=== PATIENT | male | born 1965 | race Caucasian/White ===

== ENCOUNTER 2018-02-21 15:02 | Emergency (ER) | payer MEDICARE, MEDICAID ==
[~2018-02-21] VITALS: Ht 175.3 cm; Wt 84.5 kg
[~2018-02-21 15:02] MED LIST: NO HOME MEDS
[2018-02-21 15:49] VITALS: BP 146/70
[2018-02-21] MEDS ORDERED: NICO-687 TOP (17:38)
[2018-02-21] MEDS ORDERED: LORA-269 PO (17:38)
[2018-02-21] MEDS ORDERED: FOLI0.4T2 PO (17:38)
[2018-02-21] MEDS ORDERED: THI100T PO (17:38)
== END 2018-02-21 18:03 | disposition home or self-care (01) ==
LOC: ER 15:03
DX: Z02.89 Encounter for other administrative examinations (principal); F10.129 Alcohol abuse with intoxication, unspecified; F41.9 Anxiety disorder, unspecified; Z88.1 Allergy status to other antibiotic agents; Z79.899 Other long term (current) drug therapy; Y90.9 Presence of alcohol in blood, level not specified
CPT/HCPCS: 99284

== ENCOUNTER 2021-04-09 18:01 | Emergency (ER) | payer MEDICAID, MEDICARE ==
[~2021-04-09] VITALS: Ht 175.3 cm; Wt 86.4 kg
[~2021-04-09 18:01] MED LIST changes: +LORA-269 PO
[2021-04-09 18:11] VITALS: BP 137/81
== END 2021-04-09 22:22 | disposition left against medical advice (07) ==
LOC: ER 18:02
DX: M54.89 Other dorsalgia (principal); Z53.21 Procedure and treatment not carried out due to patient leaving prior to being seen by health care provider
CPT/HCPCS: 73030

== ENCOUNTER 2025-04-24 15:06 | Emergency (ER) | payer MEDICARE ==
[~2025-04-24] VITALS: Ht 175.3 cm; Wt 72.7 kg
[2025-04-24 15:34] VITALS: BP 136/95; PULSE 85; RESP 15; TEMP 96.3; O2SAT 98
--- NOTE | 2025-04-24 15:42 | Physician Documentation ---
History of Present Illness ~ Chief Complaint: Elbow pain Stated Complaint: LEFT ELBOW PAIN HPI 59-year-old male who presents to the emergency department today with two concerns. One concern surround chest tightness, the other is swelling to left elbow. The patient reports that he was hospitalized in [place] for an extended period of time due to critical illness requiring respiratory support and chest tube in February. [place] well after that hospitalization. This chest tightness is new, is not accompanied by a fever or shortness of breath. He does admit that he is a smoker. Tetanus within 5 years: Yes Medication Reconciliation Allergies: Coded Allergies: erythromycin base (Verified Allergy, Intermediate, HIVES, 04/09/21) Scheduled Lorazepam (Ativan), 1 TAB PO Q8H Miscellaneous Medications Home Med List (No Home Medications), (Reported) Review of Systems ROS As stated above in the HPI, otherwise all systems are reviewed and negative. Physical Exam Vital Signs: Temperature: 96.3, Source: Temporal, Heart Rate: 85, Respiratory Rate: 15, BP: 136/95, Pulse Oximetry: 98, Weight: 72.700 Physical Exam General: Alert, no apparent distress. HEENT: PERRL, EOMI, no injection, moist mucous membranes. Neck: Full range of motion. Respiratory: Lungs clear, no respiratory distress. Dim throughout. No distress. Chest: No accessory muscle use. Cardiovascular: Regular rate and rhythm, no murmurs. Gastrointestinal: Soft, nontender, nondistended. Bowels sounds present. Extremities: Normal range of motion, no deformity. Bursitis without cellulit is/erythema left elbow. Neurologic: Oriented x4. Psychiatric: Normal mood and affect. Skin: Normal color, warm and dry. Trace edema BLE. Progress Results/Orders Results/Orders Vital Signs 04/24/25 15:34 Temp 96.3 Pulse 85 Resp 15 B/P (MAP) 136/95 Pulse Ox 98 Medical Decision Making Additional information obtaine: old records Findings Last seen in this ER 2020 for back pain. General Diff Dx:Considerations: Include: Other Shoulder Diff Dx:Consideration: Include: Other Elbow Diff Dx:Considerations: Include: Other Wrist Diff Dx:Considerations: Include: Other Hand Diff Dx:Considerations: Include: Other Finger Diff Dx:Considerations: Include: Other Additional Comment Most Likely Diagnoses: Post-critical illness deconditioning with musculoskeletal chest wall pain: The chest tightness without dyspnea, cough, or fever in a patient recently requiring prolonged critical care is consistent with musculoskeletal pain from chest tube placement, rib fractures from CPR or positioning, or costochondritis. Palpation of the affected chest wall typically elicits reproducible tenderness. Patients who have been comatose and mechanically ventilated often develop significant deconditioning and may experience chest wall discomfort from muscle weakness or positioning-related trauma. Recurrent or residual pleural effusion: Given the recent need for a chest tube, this patient is at risk for reaccumulation of pleural fluid. Pleural effusion can present with chest discomfort and mild dyspnea, though the absence of dyspnea makes a large effusion less likely. Small to moderate effusions may cause positional chest discomfort. Kchyn-hd-kuam ultrasound in addition to chest radiography should be used to evaluate the pleural space, as ultrasonography can detect small effusions that may be missed on chest X-ray. Post-critical illness fluid overload and heart failure: The combination of chest tightness and mild extremity swelling suggests volume overload, which is common after critical illness requiring prolonged ICU care. Patients hospitalized with critical illness often receive substantial intravenous fluids and may develop heart failure or fluid redistribution. The extremity swelling indicates fluid retention, and chest tightness could represent early pulmonary congestion even without overt dyspnea. Elevated jugular venous pressure and peripheral edema are morales signs of volume overload. Hypoalbuminemia with peripheral edema from critical illness: Critical illness commonly causes hypovolemia, hypoalbuminemia, and peripheral edema through inflammatory mechanisms. In sepsis and other inflammatory states, the return flow of fluid from the interstitial space to plasma is very slow, promoting this characteristic triad. The mild extremity swelling may reflect this pathophysiology rather than true volume overload, particularly if the patient appears euvolemic or hypovolemic on examination despite edema. Pericarditis or pericardial effusion: Chest pain that is typically sharp, pleuritic, and worse when supine characterizes pericarditis. Some patients may have a prominent cough or associated dyspnea, though this patient denies these symptoms. The recent critical illness and potential for invasive procedures increase risk for pericardial complications. A pericardial friction rub may be present but is heard in less than 30% of cases. Anxiety or panic-related chest discomfort: Patients recovering from critical illness, particularly those who were comatose, commonly experience psychological distress including anxiety, panic, and PTSD. Noncardiac chest pain associated with anxiety and panic disorder is common and has a prognosis largely devoid of cardiac complications. The chest tightness without other cardiopulmonary symptoms could represent anxiety, particularly in the context of recent life- threatening illness. Most Important Not to Miss Diagnoses: Pulmonary embolism: Rule out with validated clinical decision rules (Wells score, PERC rule) to guide D-dimer testing, followed by CT pulmonary angiography if indicated. Patients recovering from critical illness with prolonged immobilization, recent central venous catheters, and respiratory failure are at significantly elevated risk for venous thromboembolism. The chest tightness and extremity swelling (which could represent unilateral leg swelling from deep vein thrombosis) raise concern for PE. The absence of dyspnea does not exclude PE, as some patients present with atypical symptoms. Recurrent or tension pneumothorax: Rule out with immediate chest radiography (PA and lateral views) and consider jqihx-ct-kxef ultrasound. Given the recent chest tube placement, this patient is at risk for recurrent pneumothorax, particularly if the underlying lung disease that necessitated the chest tube persists. Pneumothorax is not uncommon in ICU patients, and patients with underlying lung disease requiring positive pressure ventilation are especially prone. Tension pneumothorax is a medical emergency requiring immediate needle decompression followed by tube thoracostomy, though the absence of dyspnea makes tension physiology less likely. Acute coronary syndrome: Rule out with electrocardiography within 10 minutes and serial high-sensitivity troponin measurements. If initial troponin is normal, a second measurement within 1-3 hours can reliably exclude ACS with negative predictive value of approximately 99%. Critical illness, particularly with hemodynamic instability and respiratory failure, increases risk for myocardial injury and subsequent coronary events. The chest tightness warrants exclusion of ACS even in the absence of classic anginal features. Cardiac tamponade from pericardial effusion: Rule out with urgent transthoracic echocardiography assessing for pericardial effusion and signs of tamponade physiology. Clinical features include compensatory sinus tachycardia, pulsus paradoxus, and hypotension. Echocardiographic findings include dilated inferior vena cava with minimal respiratory variation, diastolic right ventricular collapse, and marked respiratory variation in ventricular inflow. Post-critical illness patients may develop pericardial effusions from various causes including uremia, infection, or procedural complications. Acute decompensated heart failure: Rule out with chest radiography, brain natriuretic peptide (BNP) or NT-proBNP levels, and transthoracic echocardiography. The combination of chest tightness and extremity swelling could represent early heart failure, particularly if the patient has underlying cardiac disease or developed cardiac dysfunction during critical illness. Assessment should include evaluation for orthopnea, paroxysmal nocturnal dyspnea, elevated jugular venous pressure, and pulmonary rales, though rales may not always be present in chronic heart failure. Departure Referrals: NO PRIMARY CARE PROVIDER (PCP) VERITO OBREGON NP Apr 24, 2025 15:42
--- NOTE | 2025-04-24 15:53 | ELECTROCARDIOGRAPH REPORT ---
[facility] Test Date: 2025-04-24 Test Time: 15:52:48 Pat Name: ZAINA COATS Department: [facility]-ER Patient ID: [facility]-[id number] Room: Gender: M Account Processor: : 1965 Requested By: PALAK PRINGLE Order Number: [id number] Reading MD: Dr. ALICIA Dolan Measurements Intervals Locke Rate: 73 P: 6 IL: 133 QRS: 39 QRSD: 93 T: 16 QT: 416 QTc: 459 Interpretive Statements Sinus rhythm Low voltage, precordial leads Baseline wander in lead(s) V1 Electronically Signed On 04-25-2025 16:52:[address] ALICIA Dolan Please click the below link to view image of tracing.
[2025-04-24 15:58] LABS: MEAN PLATELET VOLUME 7.9 FL (7.4-10.4); RED CELL DISTRIBUTION WIDTH 13.8 % (11.5-14.5)
--- NOTE | 2025-04-24 16:18 | RADIOLOGY REPORT ---
CHEST RADIOGRAPH Indication: CP Technique: Single frontal view of the chest was obtained COMPARISON: None FINDINGS: Lines and Tubes: None Lungs: Increased interstitial prominence. This may represent pulmonary vascular congestion and/or viral pneumonia. Pleura: Trace left pleural effusion versus pleural thickening.No pneumothorax. Cardiomediastinal contours: Unremarkable Bones: Unremarkable IMPRESSION: Increased interstitial prominence. This may represent pulmonary vascular congestion and/or viral pneumonia. Trace left pleural effusion versus pleural thickening.
[2025-04-24 16:30] LABS: CREATININE 0.63 MG/DL (0.60-1.10); PRO BRAIN NATRIURETIC PEPTIDE 165 PG/ML (0-125); TOTAL CARBON DIOXIDE 28.6 MMOL/L (24-32); eCRCL 125 ML/MIN; eGFR > 90 ML/MIN
== END 2025-04-24 18:39 | disposition left against medical advice (07) ==
LOC: ER 15:06
DX: R07.89 Other chest pain (principal); F17.200 Nicotine dependence, unspecified, uncomplicated; Z88.1 Allergy status to other antibiotic agents; Z79.899 Other long term (current) drug therapy
CPT/HCPCS: 36415; 71045; 80048; 83880; 84484; 85025; 93005; 99285